=== PATIENT | female | born 1930 | race Caucasian/White ===

== ENCOUNTER 2017-12-01 13:25 | Inpatient (IN) | payer OTHER, MEDICARE ==
[~2017-12-01] VITALS: Ht 160 cm; Wt 74.9 kg
--- NOTE | 2017-12-01 13:45 | ED DYSPNEA/ASTHMA COMPLAINT ---
History of Present Illness General Chief Complaint: Dyspnea (COPD, CHF, Other) Stated Complaint: SOB Source: patient, family Exam Limitations: no limitations Vital Signs & Intake/Output Vital Signs & Intake/Output Vital Signs Date Time Temp Pulse Resp B/P B/P Pulse O2 O2 Flow FiO2 Mean Ox Delivery Rate 12/01 1537 97.3 97 18 132/61 93 / 1430 94 / 1425 93 12/01 1341 98.0 96 18 127/69 95 Room Air Allergies Coded Allergies: shrimp (Severe, ANAPHYLAXIS 12/01/17) Triage Note: PT TO ED, STATES THAT SHE WAS GETTING A PHYSICAL AND DR QUIROZ TOLD HER TO COME TO THE ED FOR FURTHER EVAL. STATES THAT SHE HAD A LITTLE MORE SOB IN HIS OFFICE. REPORTS SHE DOESNT FEEL COMPLETELY NORMAL, DENIES ANY CP, DENIES N/V. PT REPORTS DR QUIROZ CALLED TO ED FOR WHAT HE WANTS DONE, THIS RN (CHARGE) DID NOT RECEIVE ANY CALL. Triage Nurses Notes Reviewed? yes Onset: Gradual Duration: day(s): Timing: recent history Severity: moderate Activities at Onset: activity HPI: Pt is a 87 yo WF with a PMH of hypothyroid who presents to ED with a CC of cough and SOB since . Pt states she was feeling fine prior to her physical exam appointment last where she was found to have scatterred wheezes and "junky" lungs by her PCP. She was then prescribed Symbicort inhaler BID. She states since starting the symbicort she has had a cough productive of phlegm which she has been unable to spit up, she has also noted substernal chest heaviness/discomfort which does not radiate to her jaw or left arm. She reports 2 episodes of hot flashes, the second episode was this morning where is did "pass out". At one point the patient fell to the ground and blacked out for 1-2 seconds. She denies head strike. Pt denies fevers, N/V, hematemesis, hematuria, dysuria, melena/hematochezia, abdominal pain, lower extremity edema. Denies sick contacts. Denies recent tobacco use. (Renae FINNEGAN,Marlin Alexis) Past History Travel History Traveled to [place] past 21 day No Medical History Any Pertinent Medical History? see below for history Cardiovascular: hypertension Surgical History Surgical History: non-contributory Psychosocial History What is your primary language Armenian Tobacco Use: Never used Family History Hx Contributory? No (Renae FINNEGAN,Marlin Alexis) Review of Systems Review of Systems Constitutional: Reports: see HPI. EENTM: Denies: see HPI. Respiratory: Reports: see HPI. Cardiovascular: Reports: see HPI. GI: Denies: see HPI. Genitourinary: Reports: nocturia. Denies: see HPI. Musculoskeletal: Denies: see HPI. Skin: Reports: no symptoms. Neurological/Psychological: Reports: no symptoms. Hematologic/Endocrine: Reports: no symptoms. Immunologic/Allergic: Reports: no symptoms. All Other Systems: Reviewed and Negative (Renae FINNEGAN,Marlin Alexis) Physical Exam Physical Exam General Appearance: well developed/nourished, no apparent distress, alert, awake Head: atraumatic, normal appearance Eyes: Bilateral: normal appearance, EOMI. Ears, Nose, Throat: normal pharynx, normal ENT inspection, hearing grossly normal Neck: normal inspection, supple, full range of motion Respiratory: chest non-tender, diffuse corse wheezing and rhonchi through out all lung seals Cardiovascular: regular rate/rhythm Gastrointestinal: normal bowel sounds, soft, non-tender, no organomegaly Extremities: normal inspection, no edema Neurologic/Psych: awake, alert, oriented x 3 Skin: intact, normal color, warm/dry Core Measures ACS in differential dx? Yes CVA/TIA Diagnosis No Sepsis Present: No Sepsis Focused Exam Completed? No (Marlin Dean) Progress Differential Diagnosis: asthma, AMI, bronchitis, costochondritis, CHF, COPD, pericarditis, pulmonary embolism, pneumonia, pneumothorax Diagnostic Imaging: Viewed by Me: Radiology Read. Discussed w/RAD: Radiology Read. Radiology Impression: PATIENT: KAI LEA PRESENT AGE: 87 PATIENT ACCOUNT NO: [id number] : 31 LOCATION: [facility] ORDERING PHYSICIAN: Marlin FINNEGAN SERVICE DATE: 12/01/17 EXAM TYPE: RAD - XRY-CHEST XRAY, TWO VIEWS EXAMINATION: XR CHEST CLINICAL INFORMATION: Dyspnea COMPARISON: 11/30/2017 TECHNIQUE: 2 views of the chest were obtained. FINDINGS: The lungs are clear with no focal consolidation. No evidence of pneumothorax, pulmonary edema, or pleural effusions. The cardiomediastinal silhouette is unremarkable. No acute osseous findings. Degenerative changes are noted in the spine. IMPRESSION: No acute cardiopulmonary findings. DICTATED BY: Christian Mendez MD DATE/TIME DICTATED:12/01/171430 WATER RESOURCE MANAGER:MAXI DATE/TIME TRANSCRIBED:12/01/171430 CONFIDENTIAL, DO NOT COPY WITHOUT APPROPRIATE AUTHORIZATION. <Electronically signed in Other Vendor System> SIGNED BY: Christian Mendez MD 12/01/171436 Initial ED EKG: sinus rhythm @91bpm, nonspecific ST changes (Renae FINNEGAN,Marlin Alexis) Plan of Care: Orders Procedure Date/time Status Heart Healthy Diet 12/02 B Active Misc Message 12/01 175 Active ED Holding Orders 12/01 175 Active Admit to inpatient 12/01 175 Active Vital Signs 12/01 175 Active Code Status 12/01 175 Active Add-on Test (ER Only) 12/01 1511 Active Add-on Test (ER Only) 12/01 1510 Active RAPID VIRAL INFLUENZA A 12/01 1449 Complete AEROSOL (GEN) 12/01 1427 Complete THYROID STIMULATING HORMONE 12/01 1417 Complete FREE T4 12/01 1417 Complete D-DIMER 12/01 1417 Complete B-TYPE NATRIURETIC PEP (BNP) 12/01 1417 Complete TROPONIN LEVEL 12/01 1345 Complete COMPREHENSIVE METABOLIC PANEL 12/01 1345 Complete CBC WITHOUT DIFFERENTIAL 12/01 1345 Complete EKG 12/01 1326 Active Laboratory Tests 12/01/17 1417: Anion Gap 15, Estimated GFR 31 L, BUN/Creatinine Ratio 16.3, Glucose 111 H, Calcium 10.5 H, Total Bilirubin 0.6, AST 43 H, ALT 39, Alkaline Phosphatase 82 , Troponin I 0.03, Vvw-B-Engdrhmdajp Pept 736 H, Total Protein 7.3, Albumin 4.2 , Globulin 3.1, Albumin/Globulin Ratio 1.4, TSH 3.030, Free T4 1.63, D-Dimer High Sensitivty 211, CBC w Diff NO MAN DIFF REQ, RBC 4.13 L, MCV 93.1, MCH 32.3 H, MCHC 34.7, RDW 12.3, MPV 9.4, Gran % 65.8, Lymphocytes % 19.4 L, Monocytes % 14.0 H, Eosinophils % 0.6, Basophils % 0.2, Absolute Granulocytes 4.0, Absolute Lymphocytes 1.2, Absolute Monocytes 0.9 H, Absolute Eosinophils 0, Absolute Basophils 0 Microbiology 12/01 1449 NASOPHARYN: Influenza Virus A & B Rapid Smear - COMP PATIENT: KAI LEA PRESENT AGE: 87 PATIENT ACCOUNT NO: [id number] : 31 LOCATION: [facility] ORDERING PHYSICIAN: Marlin FINNEGAN SERVICE DATE: 12/01/17 EXAM TYPE: RAD - XRY-CHEST XRAY, TWO VIEWS EXAMINATION: XR CHEST CLINICAL INFORMATION: Dyspnea COMPARISON: 11/30/2017 TECHNIQUE: 2 views of the chest were obtained. FINDINGS: The lungs are clear with no focal consolidation. No evidence of pneumothorax, pulmonary edema, or pleural effusions. The cardiomediastinal silhouette is unremarkable. No acute osseous findings. Degenerative changes are noted in the spine. IMPRESSION: No acute cardiopulmonary findings. DICTATED BY: Christian Mendez MD DATE/TIME DICTATED:12/01/171430 WATER RESOURCE MANAGER:MAXI DATE/TIME TRANSCRIBED:12/01/171430 CONFIDENTIAL, DO NOT COPY WITHOUT APPROPRIATE AUTHORIZATION. <Electronically signed in Other Vendor System> SIGNED BY: Christian Mendez MD 12/01/171436 No evidence for pneumonia on chest x-ray. Patient's EKG is stable, no acute changes. Patient's d-dimer is negative, low suspicion for pulmonary embolism at this time. Patient has negative troponin enzyme. Patient's chest discomfort began yesterday. Patient does have cardiac risk factors including her age, hypertension, episodes of possible syncope today. Given patient's current dyspnea/wheezing with chest discomfort and syncopal episodes this patient requires hospital admission for further evaluation. Patient requires cardiology consult, pulmonology consult, IV steroids, repeat EKGs and troponins, telemetry monitoring. I discussed the patient with bounty trapper, Dr. Larson, who agrees with our plan. Dr. Gann present to see and evaluate the patient. Spoke with Dr. Figueroa regarding admission. (Renae FINNEGAN,Marlin Alexis) (Sanjuanita GLASGOW,Homero Walker) Departure Departure Disposition: STILL A PATIENT Condition: Stable Clinical Impression Primary Impression: Dyspnea Qualifiers: Dyspnea type: dyspnea on exertion Qualified Code: R06.09 - Other forms of dyspnea Secondary Impressions: Chest pain Syncopal episodes Qualifiers: Syncope type: unspecified Qualified Code: R55 - Syncope and collapse Wheezing Referrals: Jenny GLASGOW,Liam Ferreira (PCP/Family) Departure Forms: Customer Survey General Discharge Information Admission Note Spoke With: Shlomo Figueroa MD Documentation of Exam: Documentation of any treatments & extenuating circumstances including Concerns Regarding Discharge (functional status, medication knowledge or non-compliance, living conditions, etc.) that warrant an admission rather than observation: [ Patient with chest pain, dyspnea, diffuse wheezing on physical exam showing signs of possible asthma, syncopal episode today, this patient requires cardiology consult, repeat troponin and EKGs, pulmonology consult, IV steroids, premature discharge is medically unsafe] (Marlin Dean) PA/METAPHYSICS TEACHER Co-Sign Statement Statement: ED Attending supervision documentation- [X] I saw and evaluated the patient. I have also reviewed all the pertinent lab results and diagnostic results. I agree with the findings and the plan of care as documented in the PA's/METAPHYSICS TEACHER's documentation. Patient presents for syncopal episodes over the past 2 days. Patient was sent to the emergency department by her primary care physician. Physical examination reveals a nonfocal neurologic examination unremarkable heart and lung examination. [] I have reviewed the ED Record and agree with the PA's/METAPHYSICS TEACHER's documentation. [] Additions or exceptions (if any) to the PAs/METAPHYSICS TEACHER's note and plan are summarized below: [] (Sanjuanita GLASGOW,Homero Walker) Critical Care Note Critical Care Note Critical Care Time: non-applicable (Marlin Dean)
[2017-12-01 14:25] LABS: ABSOLUTE BASOPHIL COUNT 0 /CUMM (0.0-0.2); ABSOLUTE EOSINOPHIL COUNT 0 /CUMM (0.0-0.7); ABSOLUTE LYMPH COUNT 1.2 /CUMM (1.2-3.4); ABSOLUTE MONOCYTE COUNT 0.9 /CUMM (0.10-0.60); BASOPHIL % 0.2 % (0.0-2.0); EOSINOPHIL % 0.6 % (0-5); GRANULOCYTE % 65.8 % (42.2-75.2); HEMATOCRIT 38.4 % (37-47); MEAN CORPUSCULAR HGB 32.3 PG (27.0-31.0); MEAN CORPUSCULAR HGB CONC 34.7 G/DL (33.0-37.0); MEAN CORPUSCULAR VOLUME 93.1 FL (81.0-99.0); MEAN PLATELET VOLUME 9.4 FL (7.4-10.4); PLATELET COUNT 231 /CUMM (130-400); RBC DISTRIBUTION WIDTH 12.3 % (11.5-14.5); RED BLOOD CELL CT 4.13 /CUMM (4.20-5.40); WHITE BLOOD CELL COUNT 6.1 /CUMM (4.8-10.8)
--- NOTE | 2017-12-01 14:37 | RADIOLOGY REPORT ---
EXAMINATION: XR CHEST CLINICAL INFORMATION: Dyspnea COMPARISON: 11/30/2017 TECHNIQUE: 2 views of the chest were obtained. FINDINGS: The lungs are clear with no focal consolidation. No evidence of pneumothorax, pulmonary edema, or pleural effusions. The cardiomediastinal silhouette is unremarkable. No acute osseous findings. Degenerative changes are noted in the spine. IMPRESSION: No acute cardiopulmonary findings.
--- NOTE | 2017-12-01 21:19 | History & Physical ---
Donny Neff MD 12/01/172118: General Information and [facility] MD Statement: I have seen and personally examined KAI LEA and documented this H&P. The patient is a 87 year old F who presented with a patient stated chief complaint of syncope. Source of Information: patient, old records Exam Limitations: no limitations History of Present Illness: 87 year old female with past medical history of chronic renal insufficiency ( Stage IIIB), hypothyroidism and hypertension presents with complaints worsening cough, dyspnea, and syncopal episode this morning. The patient states that she has been experiencing exertional dyspnea for the past five years. The patient states that appoximately six years ago she underwent a negative exercise stress test with Dr. Monge. The patient has post nasal drip and chronic nonproductive dry hacking cough that is quite bothersome to her and that she attributes to seasonal allergies. She was recently started on Symbicort by Dr. Alvarado her PCP, but stopped it after only a few days use because she states her cough became dramatically worse with its use. Yesterday morning, the patient got out of bed and prior to eating breakfast, she felt faint, lightheaded, and diaphoretic. She felt like she was going to pass out and sat down to rest and her symptoms quickly resolved for the remainder of the day. This morning, she once again experienced the same symptoms but this time "knew she was going down " tried to brace her fall but was unable to. She fell on her left side and denied any head strike or injuries/pain related to the fall. She says its possible that she lost consciousness for a second but is uncertain. Review of systems is negative for headache, fevers, chills, sputum, sore throat, chest pain, palpitations, abdominal pain, nausea, vomiting, constipation, diarrhea, and weakness. She does state she has noticed increased urinary frequency, nocturia, and stress incontinence with her coughing but denies any dysuria. In the ED, she was treated with nebulized albuterol and ipatropium and steroids for cough and wheezing, had a chest x-ray, and was admitted to telemetry for syncope evaluation. Allergies/Medications Allergies: Coded Allergies: shrimp (Severe, ANAPHYLAXIS 12/01/17) Home Med list Hydrochlorothiazide 12.5 MG TABLET 1 TAB PO DAILY HTN (Reported) Levothyroxine Sodium (Synthroid) 88 MCG TABLET 1 TAB PO DAILY AC THYROID ( Reported) Losartan (Cozaar) 100 MG TABLET 1 TAB PO DAILY HTN (Reported) Compliance With Home Meds: GOOD Past History Travel History Traveled to [place] past 21 day No Medical History Cardiovascular: hypertension Endocrine: hypothyroidism Isolation History: Standard Surgical History Surgical History: non-contributory Past Family/Social History Psychosocial History Smoking Status: Former Smoker ETOH Use: denies use Illicit Drug Use: denies illicit drug use Functional Ability ADLs Independent: dressing, eating, toileting, bathing. Ambulation: independent Employment History Employment [employer] Review of Systems Review of Systems Constitutional: Reports: diaphoresis. Denies: chills, fever, malaise, weakness. EENTM: Reports: no symptoms. Cardiovascular: Reports: syncope. Denies: chest pain, edema, orthopena, palpitations, peripheral edema. Respiratory: Reports: cough, short of breath. Denies: hemoptysis, orthopnea, sputum production, stridor, wheezing. GI: Reports: no symptoms. Genitourinary: Reports: frequency, nocturia. Denies: dysuria. Musculoskeletal: Reports: no symptoms. Skin: Reports: no symptoms. Neurological/Psychological: Reports: no symptoms. Hematologic/Endocrine: Reports: no symptoms. Immunologic/Allergic: Reports: no symptoms. All Other Systems: Reviewed and Negative Exam & Diagnostic Data Last 24 Hrs of Vital Signs/I&O Vital Signs Date Time Temp Pulse Resp B/P B/P Pulse O2 O2 Flow FiO2 Mean Ox Delivery Rate 12/01 2200 93 Room Air 12/01 1833 98.3 97 18 142/63 98 Room Air 12/01 1537 97.3 97 18 132/61 93 / 1430 94 04/ 1425 93 04/ 1341 98.0 96 18 127/69 95 Room Air Intake & Output 12/01 1600 12/01 0800 12/01 0000 Intake Total 0 Output Total Balance 0 Intake, Oral 0 Physical Exam General Appearance Alert, Oriented X3, Cooperative, No Acute Distress Neck Supple, No JVD Cardiovascular Regular Rate, Normal S1, Normal S2, No Murmurs Lungs Clear to Auscultation, Normal Air Movement Abdomen Normal Bowel Sounds, Soft, No Tenderness, No Masses Neurological Normal Speech, Strength at 5/5 X4 Ext, Normal Tone, Sensation Intact, Cranial Nerves 3-12 NL Extremities No Clubbing, No Cyanosis, No Edema, Normal Pulses Diagnostic Data EKG Results sinus rhythm, no ischemic ST changes CXR Results The lungs are clear with no focal consolidation. No evidence of pneumothorax, pulmonary edema, or pleural effusions. The cardiomediastinal silhouette is unremarkable. No acute osseous findings. Degenerative changes are noted in the spine. Assessment/Plan Assessment: 87 year old female with past medical history of chronic renal insufficiency ( Stage IIIB), hypothyroidism and hypertension presents with complaints worsening cough, dyspnea, and syncopal episode this morning. Syncope: Monitor on telemetry for arrhythmia Check serial troponins and EKGs to evaluate for myocardial ischemia Check carotid dopplers to evaluate for hemodynamically significant stenosis Cardiology consultation with Dr. Monge Echocardiogram Cough: No wheezing noted on physical exam Received steroids and nebulizer treatment in the ED Chest x-ray negative Hold symbicort, start mucinex Urinary frequency: Check urinalysis and culture HTN: Continue losartan despite elevated creatinine, not acute kidney injury CKD Stage III Hold HCTZ for hypercalcemia 10.5, recheck BEP and calcium levels tomorrow Monitor renal function on ARB Hypothyroidism: TSH wnl Continue recently increased dose of 88mcg daily ac Heart healthy diet DVT ppx-lovenox 40mg daily DNR/DNI As Ranked By This Provider Problem List: 1. Syncopal episodes Qualifiers Syncope type: unspecified Qualified Code: R55 - Syncope and collapse Core Measures/Misc (05/17) Acute Coronary Syndrome ACS Diagnosis: No Congestive Heart Failure Congestive Heart Failure Diagnosis No Cerebrovascular Accident CVA/TIA Diagnosis: No VTE (View Protocol) VTE Risk Factors Age>40 No Mechanical VTE Prophylaxis d/t N/A MechProphylax Ordered No VTE Pharm Prophylaxis d/t NA PharmProphylax ordered Sepsis (View protocol) Sepsis Present: No Debby GLASGOW,Isctil 12/02/17 0632: Resident Review Statement Resident Statement: examined this patient, discussed with audit practice intern, agreed with audit practice intern Other Findings: Assessment: 87/F with PMH of HTN, CKD/IIIB, hypothyroidism presents because of pre-syncopal episode one day prior to admission and syncopal episode on the day of admission. She has post nasal drip and chronic nonproductive dry hacking cough that she attribute to seasonal allergies, she reported wheezing, symptoms worsen when PCP tried to treat by using Symbicort. The differential diagnosis for these symptoms would be obstructive lung disease such as undiagnosed asthma or COPD or possible chronic bronchitis or rhinitis. By reviewing her reconcile meds, 4 days ago she was given shingrix zoster vaccine and her levothyroxine dose was increase from 75 MCG to 88 MCG because of elevated TSH, However has normal thyroid function on admission. 10 days ago Losartan 100 Mg and HCTZ 12.5 mg were started. On admission was mildly tachycardic possible compensating to maintain normal blood pressure which makes orthostatic hypotension high in the deferential. Hypercalcemia was also noticed on admission and was also elevated 5 days ago. PTH and calcium were normal on 2014 and was not checked since then. Plan #Syncope, we'll * Monitor on tele to r/o ACS and arrhythmia * R/O carotid stenosis by doppler * Check orthostatic BP. * Watch BP while holding HCTZ and continuing Losartan * HCTZ should be avoided even on discharge given hypercalcemia after it was started. * Echocardiogram, given no previous documented one * Cardiology consultation. #cough, SOB, post nasal drip and wheezing, we'll * Hold steroid given no significant wheezing during PE * Peak flow if whezzing recur * Hold symbicort, start mucinex * TRC/Nebs * May benefit from flonase and claritin #Hypercalcemia, we'll * Recheck calcium level after holding HCTZ * Check PTH and Vit D level if calcium continue to be elevated after holding HCTZ. #Hypothyroidism, we'll * Continue recently increased dose -Heart healthy diet -HEP SC -DNR/I Shlomo Figueroa MD 12/02/17 1211: Attending MD Review Statement Attending Statement Attending MD Statement: examined this patient, discuss w/resident/PA/BOOSTER OPERATOR, agreed w/resident/PA/BOOSTER OPERATOR, reviewed EMR data (avail) Attending Assessment/Plan: 87F PMH HTN, CKD/IIIB, hypothyroidism presenting with several days of dry cough and mild dyspnea, with two near syncopal episodes in the days preceding admission. Went to her PCP 4 days prior with complaints of cough, was given Symbicort, which made her cough more so she stopped it, then had two episodes in consecutive days where she broke out into a cold sweat, felt lightheaded, and nearly fell to the ground. She did not lose consciousness in either episode, and they were not preceded by coughing fits, chest pain, SOB, or any other symptoms. EKG was NSR in ED, negative troponin, negative CXR. 1. Near syncope 2. Acute bronchitis 3. New onset atrial fibrillation Plan - Continue on telemetry - Prednisone 20mg x 3 day course - Tessalon Perles and Mucinex for cough - Continue home medications - DVT PPx
[2017-12-01 23:00] VITALS: BP 142/80
[2017-12-01] MEDS ORDERED: HYDROCHLOROTH12.5 M2 PO (23:11)
[2017-12-01] MEDS ORDERED: SYNTHROID88 MCG PO (23:11)
[2017-12-01] MEDS ORDERED: COZAAR100 M1 PO (23:12)
[2017-12-02 06:00] VITALS: BP 152/86
--- NOTE | 2017-12-02 07:19 | PN- Housestaff ---
Kuldeep GLASGOW,[facility] 12/02/17 0718: Subjective Follow-up For: Syncope ?Cough induced vasovagal syncope Afib Urinary frequency Tele-Events Since Last Visit: SVT/NSR HR 76-204 PVC Subjective: No acute events overnight. Coughing. No CP. States episode of sweats that woke her up. Recently increased synthroid from 75 to 88mcg. Review of Systems Constitutional: Reports: see HPI. Objective Last 24 Hrs of Vital Signs/I&O Vital Signs Date Time Temp Pulse Resp B/P B/P Pulse O2 O2 Flow FiO2 Mean Ox Delivery Rate 12/02 1440 86 130/70 12/02 1351 98.4 86 18 130/70 93 Room Air 12/02 1201 Room Air 12/02 0800 Room Air 12/02 0600 98.0 77 20 152/86 95 12/02 0150 111 142/82 12/01 2300 98.9 111 24 142/80 96 12/01 2200 93 Room Air Intake & Output 12/02 1600 12/02 0800 12/02 0000 Intake Total 480 110 100 Output Total 250 Balance 480 110 -150 Intake, IV 10 Intake, Oral 480 100 100 Output, Urine 250 Patient 161 lb Weight Weight Reported by Patient Measurement Method Physical Exam General Appearance: Alert, Oriented X3, Cooperative Cardiovascular: Regular Rate, Normal S1, Normal S2 Lungs: Clear to Auscultation, Normal Air Movement Abdomen: Normal Bowel Sounds, Soft, No Tenderness Vascular: 3+ radial pulses Current Medications: Current Medications Sig/Marie Start time Last Medication Dose Route Stop Time Status Admin Albuterol Sulfate 2 PUF Q4 12/02 1000 AC 12/02 INH 1734 Apixaban 2.5 MG BID 12/02 2200 AC PO Benzonatate 100 MG TID 12/02 1000 AC 12/02 PO 1733 Diltiazem HCl 30 MG Q8 12/02 1400 AC 12/02 PO 1440 Enoxaparin Sodium 30 MG DAILY 12/02 1000 CAN SC Guaifenesin 600 MG Q12 12/02 1000 AC 12/02 PO 0817 Heparin Sodium 5,000 UNIT Q8 12/02 1400 AC (Porcine) SC 12/02 2200 Hydrochlorothiazide 12.5 MG DAILY 12/02 1000 CAN PO Levothyroxine Sodium 0.088 MG DAILY AC 12/02 0700 AC 12/02 PO 0604 Losartan Potassium 100 MG AT BEDTIME 12/01 0030 AC 12/02 PO 0150 Prednisone 20 MG DAILY 12/02 1000 AC 12/02 PO 12/04 1001 1207 Last 24 Hrs of Lab/Steven Results Last 24 Hrs of Labs/Mics: Laboratory Tests 12/02/17 0630: Anion Gap 15, Estimated GFR 36 L, BUN/Creatinine Ratio 22.1, Glucose 131 H, Calcium 9.6, Troponin I 0.03 12/01/17 2250: Troponin I 0.03 Microbiology 12/02 0006 URINE ROUT: Urine Culture - COLB Assessment/Plan Assessment: 87 year old female with past medical history of chronic renal insufficiency ( Stage IIIB), hypothyroidism and hypertension presents with complaints worsening cough, dyspnea, and syncopal episode this morning. #Syncope: trop .03x3 Carotid doppler : b/l plaques but normal velocities -f/u echo -f/u cards recommendations #Cough Received steroids and nebulizer treatment in the ED Chest x-ray negative Possibly cough induced vasovagal syncope -tessalon pearsl -mucinex -prednisone 20 x3 days #afib run -apixaban 2.5 mg BID -cardizem 30 TID -f/u cardiology recomendations as stated above #Urinary frequency: -Check urinalysis and culture #HTN: -Continue losartan despite elevated creatinine, not acute kidney injury CKD Stage III -Hold HCTZ for hypercalcemia 10.5, recheck BEP and calcium levels tomorrow #Hypothyroidism: TSH wnl Continue recently increased dose of 88mcg daily ac -cont levothyroxine #CKD Cr 1.4 -baseline, cont to monitor Heart healthy diet DVT ppx-dc heparin SC, pt now on apixaban DNR/DNI Problem List: 1. Syncopal episodes 2. Cough 3. Afib Pain Ratin Pain Location: none Pain Goal: Pain 4 or less Pain Plan: pain pathway Tomorrow's Labs & Rationales: cbc bep Shlomo Figueroa MD 12/02/17 1209: Attending MD Review Statement Attending Statement Attending MD Statement: examined this patient, discuss w/resident/PA/[employer], agreed w/resident/PA/[employer], reviewed EMR data (avail) Attending Assessment/Plan: 87F PMH HTN, CKD/IIIB, hypothyroidism presenting with several days of dry cough and mild dyspnea, with two near syncopal episodes in the days preceding admission. Went to her PCP 4 days prior with complaints of cough, was given Symbicort, which made her cough more so she stopped it, then had two episodes in consecutive days where she broke out into a cold sweat, felt lightheaded, and nearly fell to the ground. She did not lose consciousness in either episode, and they were not preceded by coughing fits, chest pain, SOB, or any other symptoms. EKG was NSR in ED, negative troponin, negative CXR. Patient feels well today. Her cough persists. Overnight she had an episode of cold sweats with lightheadedness that woke her up from sleep. Telemetry shows runs of atrial fibrillation overnight. She is currently in NSR. 1. Near syncope 2. Acute bronchitis 3. New onset atrial fibrillation Plan - Continue on telemetry - Start Cardizem PO - Start Eliquis - Prednisone 20mg x 3 day course - Tessalon Perles and Mucinex for cough - Continue home medications - Check orthostatics tomorrow morning - DVT PPx
--- NOTE | 2017-12-02 10:31 | Cons- Cardiology ---
General Information and HPI Consulting Request Date of Consult: 12/02/17 Requested By: Shlomo Figueroa MD Reason for Consult: Syncope Source of Information: patient, old records Exam Limitations: no limitations History of Present Illness: The patient is an 87-year-old woman with a past medical history of hypothyroidism, hypertension and chronic renal insufficiency. She presents to our hospital today with symptoms of occasional flushing as well as a near syncopal/syncopal episode. The patient states she had episodes of lightheadedness as well as a flushing sensation, lasting for several seconds over the past several years. On the day prior to arrival, she had a more significant and intense episode; however, this was in the context of URI symptoms and increasing, following an inhaler use. On the morning of arrival, she states having again a sudden sensation of flushing, with concurrent lightheadedness and diaphoresis. This was following arising out of bed. She felt immediately week and states being aware of a near syncopal episode, wherein she is unsure conscious us prior to falling to the floor; however, recalls hitting the ground. No significant trauma was sustained. There was quick resolution of the symptoms. She otherwise denied concurrent symptoms of chest pain nor palpitations at that time. On arrival to the emergency room, an EKG demonstrated no acute changes. She was treated with an nebulizer with relief of respiratory symptoms, and reduction in cough and wheezing. Following admission to telemetry, she was noted to have occasional PACs, PVCs and a short paroxysm of atrial fibrillation with a ventricular response rate of approximately 160 bpm approximately 5 seconds. Stress testing and an echocardiogram performed in 2014 due to presentation of dyspnea on exertion. These demonstrated overall normal results. Allergies/Medications Allergies: Coded Allergies: shrimp (Severe, ANAPHYLAXIS 12/01/17) Home Med List: Hydrochlorothiazide 12.5 MG TABLET 1 TAB PO DAILY HTN (Reported) Levothyroxine Sodium (Synthroid) 88 MCG TABLET 1 TAB PO DAILY AC THYROID ( Reported) Losartan (Cozaar) 100 MG TABLET 1 TAB PO DAILY HTN (Reported) Current Medications: Current Medications Sig/Marie Start time Last Medication Dose Route Stop Time Status Admin Albuterol Sulfate 2 PUF Q4 12/02 1000 AC INH Albuterol Sulfate 3 ML ONCE ONE 12/01 1430 DC 12/01 INH 12/01 1431 1425 Benzonatate 100 MG TID 12/02 1000 AC PO Enoxaparin Sodium 30 MG DAILY 12/02 1000 CAN SC Guaifenesin 600 MG Q12 12/02 1000 AC 12/02 PO 0817 Heparin Sodium 5,000 UNIT Q8 12/02 1400 AC (Porcine) SC Hydrochlorothiazide 12.5 MG DAILY 12/02 1000 CAN PO Ipratropium Moody 2.5 ML ONCE ONE 12/01 1430 DC 12/01 INH 12/01 1431 1425 Levothyroxine Sodium 0.088 MG DAILY AC 12/02 0700 AC 12/02 PO 0604 Losartan Potassium 100 MG AT BEDTIME 12/01 0030 AC 12/02 PO 0150 Methylprednisolone 0 .STK-MED ONE 12/01 1649 DC .ROUTE Methylprednisolone 125 MG ONCE ONE 12/01 1645 DC 12/01 IV 12/01 1646 1654 Prednisone 20 MG DAILY 12/02 1000 AC PO Review of Systems Review of Systems: The review of systems is negative for chest pains; however, is positive for palpitations and lightheadedness episodes as above. The remainder of the 14 point review of systems is noncontributory with the exception of above. Past History Travel History Traveled to [place] past 21 day No Medical History Blood Transfusion Hx: Yes Neurological: dizziness EENT: NONE Cardiovascular: hypertension Respiratory: NONE Gastrointestinal: GERD Hepatic: NONE Renal: RECENTLY ELEVATED KIDNEY FUNCTIONS Musculoskeletal: osteoarthritis Psychiatric: NONE Endocrine: hypothyroidism Blood Disorders: NONE Cancer(s): NONE RESEARCH PROGRAM MANAGER/Reproductive: NONE Surgical History Surgical History: non-contributory Psychosocial History Where Do You Live? Home Smoking Status: Former Smoker ETOH Use: denies use Illicit Drug Use: denies illicit drug use Functional Ability ADLs Independent: dressing, eating, toileting, bathing. Ambulation: independent Employment History Employment: [employer] Exam & Diagnostic Data Vital Signs and I&O Vital Signs Date Time Temp Pulse Resp B/P B/P Pulse O2 O2 Flow FiO2 Mean Ox Delivery Rate 12/02 08 Room Air 12/02 06 98.0 77 20 152/86 95 12/02 0150 111 142/82 12/01 2300 98.9 111 24 142/80 96 12/01 2200 93 Room Air 12/01 1833 98.3 97 18 142/63 98 Room Air 12/01 1537 97.3 97 18 132/61 93 12/01 1430 94 12/01 1425 93 12/01 1341 98.0 96 18 127/69 95 Room Air Intake & Output 12/02 0800 12/02 0000 12/01 1600 12/01 0800 12/01 0000 Intake Total 110 100 0 Output Total 250 Balance 110 -150 0 Intake, IV 10 Intake, Oral 100 100 0 Output, Urine 250 Patient 161 lb Weight Weight Reported by Patient Measurement Method Physical Exam: General: Nontoxic, no apparent distress. HEENT: Sclera and conjunctiva within normal limits, without xanthelasmas. Neck: Carotids 2+ without bruits. Respiratory: Clear to auscultation, air movement is good, without accessory respiratory muscle use. Heart: Regular rate and rhythm, without murmurs, without JVD. Abdomen: Soft, nontender, no masses, normoactive bowel sounds. Extremities: Without clubbing, cyanosis, without edema. Neuro: Nonfocal exam, strength, 5 out of 5 Skin: Within normal limits without lesions. Psych: Mood and affect: Normal Labs/Steven Results: Laboratory Tests 12/02 12/01 12/01 0630 2250 1417 Chemistry Sodium (137 - 145 mmol/L) 140 137 Potassium (3.5 - 5.1 mmol/L) 4.2 4.2 Chloride (98 - 107 mmol/L) 104 101 Carbon Dioxide (22 - 30 mmol/L) 20 L 21 L Anion Gap (5 - 16) 15 15 BUN (7 - 17 mg/dL) 31 H 26 H Creatinine (0.5 - 1.0 mg/dL) 1.4 H 1.6 H Estimated GFR (>60 ml/min) 36 L 31 L BUN/Creatinine Ratio (7 - 25 %) 22.1 16.3 Glucose (65 - 99 mg/dL) Pending 111 H Calcium (8.4 - 10.2 mg/dL) Pending 10.5 H Total Bilirubin (0.2 - 1.3 mg/dL) 0.6 AST (14 - 36 U/L) 43 H ALT (9 - 52 U/L) 39 Alkaline Phosphatase (<127 U/L) 82 Troponin I (< 0.11 ng/ml) 0.03 0.03 0.03 Rdb-[id number] Pept (<125 pg/mL) 736 H Total Protein (6.3 - 8.2 g/dL) 7.3 Albumin (3.5 - 5.0 g/dL) 4.2 Globulin (1.9 - 4.2 gm/dL) 3.1 Albumin/Globulin Ratio (1.1 - 2.2 %) 1.4 TSH (0.270 - 4.200 uIU/mL) 3.030 Free T4 (0.85 - 1.93 ng/dL) 1.63 Coagulation D-Dimer High Sensitivty (0 - 243 ng/ml) 211 Hematology CBC w Diff NO MAN DIFF REQ WBC (4.8 - 10.8 /CUMM) 6.1 RBC (4.20 - 5.40 /CUMM) 4.13 L Hgb (12.0 - 16.0 G/DL) 13.3 Hct (37 - 47 %) 38.4 MCV (81.0 - 99.0 FL) 93.1 MCH (27.0 - 31.0 PG) 32.3 H MCHC (33.0 - 37.0 G/DL) 34.7 RDW (11.5 - 14.5 %) 12.3 Plt Count (130 - 400 /CUMM) 231 MPV (7.4 - 10.4 FL) 9.4 Gran % (42.2 - 75.2 %) 65.8 Lymphocytes % (20.5 - 51.1 %) 19.4 L Monocytes % (1.7 - 9.3 %) 14.0 H Eosinophils % (0 - 5 %) 0.6 Basophils % (0.0 - 2.0 %) 0.2 Absolute Granulocytes (1.4 - 6.5 /CUMM) 4.0 Absolute Lymphocytes (1.2 - 3.4 /CUMM) 1.2 Absolute Monocytes (0.10 - 0.60 /CUMM) 0.9 H Absolute Eosinophils (0.0 - 0.7 /CUMM) 0 Absolute Basophils (0.0 - 0.2 /CUMM) 0 Assessment/Plan Assessment/Plan 87-year-old woman with a past medical history of hypothyroidism, hypertension and chronic renal insufficiency. She presents to our hospital today with symptoms of occasional flushing as well as a near syncopal/syncopal episode. Near syncope/paroxysmal atrial fibrillation: The patient had a near syncopal episode which was of sudden onset. We discussed possible etiologies which would include orthostatic blood pressure changes as well as other such as paroxysmal arrhythmias. As we have seen a short paroxysm of atrial fibrillation on telemetry monitoring, as the suspicion for this being the etiology. Have discussed atrial fibrillation with the patient as well as the need for initiation of anticoagulation regimen and a rate control agent. Given her renal dysfunction and age, an agent such as Eliquis set 2.5 mg by mouth twice a day would be appropriate. As her blood pressure is mildly elevated and she has evidence for reactive airway disease, an agent such as diltiazem may be considered for rate control during atrial fibrillation paroxysms. This may be initiated, and further outpatient monitoring ilana event monitor would be performed as an outpatient. An echocardiogram will be obtained. Chronic kidney disease: The patient has chronic kidney disease and no evidence for acute volume overload. We will try to maintain a euvolemic state. Thank you for allowing us to participate in the care of your patient. Please do not hesitate to contact us further with any questions. Sincerely, Bright Monge MD [facility] Consult Acknowledgment - Thank you for your consult request.
--- NOTE | 2017-12-02 12:11 | Admission Certification ---
Admission Certification Certification Statement - As attending physician, I certify that at the time of - admission, based on clinical presentation, severity of - symptoms, need for further diagnostic testing and - therapeutic interventions, and risk of adverse outcomes - without in-hospital treatment, in my clinical assessment, - this patient requires an acute hospital stay for a minimum - of two nights or longer. I have also considered psychsocial - factors such as support system, advanced age, financial - issues, cognitive issues, and failed out-patient treatments, - past re-admission history, safety of patient, and lack of - compliance as applicable. Specific rationale supporting this admission is: Near syncope x2 with cough, fall risk
--- NOTE | 2017-12-02 12:19 | ULTRASOUND REPORT ---
EXAMINATION: DUPLEX BILATERAL CAROTID ULTRASOUND CLINICAL INFORMATION: Syncope COMPARISON: None. TECHNIQUE: Duplex bilateral carotid US was performed using real-time ultrasound and Doppler techniques (integrating B-mode 2D vascular images, Doppler spectral analysis and color flow Doppler imaging). These techniques were utilized to interrogate the extracranial carotid and vertebral arteries bilaterally. The degree of stenosis is based off criteria similar to NASCET. FINDINGS: 1. On the right: Plaque is present at the carotid bifurcation but velocity measurements are normal and do not suggest a stenosis of greater than 50% diameter reduction in the right ICA. The right ECA demonstrates a mild stenosis with peak systolic velocity of under 200 cm/s. The vertebral artery is patent demonstrating antegrade flow. 2. On the left: Plaque is present at the carotid bifurcation but velocity measurements are normal and do not suggest a stenosis of greater than 50% diameter reduction in the left ICA. The left ECA demonstrates a mild stenosis with peak systolic velocity of under 200 cm/s. The vertebral artery is patent demonstrating antegrade flow. IMPRESSION: Plaque is present in the internal carotid arteries but velocity measurements are normal and there is no evidence to suggest a hemodynamically significant stenosis of greater than 50% diameter reduction.
[2017-12-02 13:51] VITALS: BP 130/70
--- NOTE | 2017-12-02 20:51 | ECHOCARDIOGRAM REPORT ---
KAI LEA Age: 87 : 1930 Gender: F Exam Date: 12/02/2017 19:09 Exam Location: 1 [address] Ht (in): 62 Wt (lb): 161 BSA: 1.81 BP: 152 / 86 Ordering Physician: Donny Neff MD Referring Physician: Bright Monge M.D. Technologist: Sandra Cuba [facility] Room Number: 185-02 Indications: AFIB/FLUTTER Rhythm: Sinus Technical Quality: poor FINDINGS Left Ventricle Normal size left ventricle. Left ventricular wall thickness mildly increased. Normal left ventricular ejection fraction estimated at 60-65%. Right Ventricle Normal right ventricular size and function. Right Atrium Normal right atrial size. Left Atrium Mild left atrial dilatation. Mitral Valve Mild mitral annular calcification. Trace to mild mitral regurgitation. Aortic Valve Aortic valve not well visualized. Mild aortic stenosis. Tricuspid Valve Tricuspid valve not well visualized, grossly normal. Mild tricuspid regurgitation. Right ventricular systolic pressure estimated to be within the normal range at 26 mmHg. Pulmonic Valve Pulmonic valve not well visualized. Pericardium No pericardial effusion. Great Vessels Aortic root and proximal ascending aorta not well visualized. CONCLUSIONS Poor Echo window. Normal left ventricular sstolic function with mild concentric hypertrophy. Mild Left atrial enlargement. Mild Aortic stenosis. Livan Bhardwaj M.D. (Electronically Signed) Final Date: 02 December 2017 20:51 MEASUREMENTS (Male / Female) Normal Values 2D ECHO LV Diastolic Diameter PLAX 4.3 cm 4.2 - 5.9 / 3.9 - 5.3 cm LV Systolic Diameter PLAX 2.3 cm 2.1 - 4.0 cm LV Fractional Shortening PLAX 46.5 % 25 - 46 % LV Ejection Fraction 2D Teich 78.2 % IVS Diastolic Thickness 1.2 cm LVPW Diastolic Thickness 1.2 cm LV Relative Wall Thickness 0.6 RV Internal Dim ED PLAX 2.6 cm 1.9 - 3.8 cm LVOT Diameter 1.9 cm Aortic Root Diameter 2.8 cm LA Systolic Diameter LX 3.8 cm 3.0 - 4.0 / 2.7 - 3.8 cm LA Volume 22.0 cm 18 - 58 / 22 - 52 cm Ascending Aorta Diameter 2.7 cm DOPPLER AV Peak Velocity 254.0 cm/s AV Peak Gradient 25.8 mmHg AV Mean Velocity 170.0 cm/s AV Mean Gradient 13.0 mmHg AV Velocity Time Integral 47.6 cm LVOT Peak Velocity 113.0 cm/s LVOT Peak Gradient 5.1 mmHg LVOT Mean Velocity 75.7 cm/s LVOT Mean Gradient 3.0 mmHg LVOT Velocity Time Integral 21.9 cm LVOT Stroke Volume 62.1 cm AV Area Cont Eq vti 1.3 cm AV Area Cont Eq pk 1.3 cm MV Peak Velocity 132.0 cm/s MV Peak Gradient 7.0 mmHg MV Mean Velocity 88.7 cm/s MV Mean Gradient 4.0 mmHg Mitral E Point Velocity 124.0 cm/s Mitral A Point Velocity 132.0 cm/s Mitral E to A Ratio 0.9 MV PHT Velocity 132.0 cm/s MV Deceleration [place] 751.0 cm/s MV Pressure Half Time 52.7 ms MV Area PHT 4.2 cm MV Deceleration Time 172.0 ms TR Peak Velocity 229.0 cm/s TR Peak Gradient 21.0 mmHg Right Atrial Pressure 5.0 mmHg Pulmonary Artery Systolic Pressu 26.0 mmHg Right Ventricular Systolic Press 26.0 mmHg PV Peak Velocity 121.0 cm/s PV Peak Gradient 5.9 mmHg PV Mean Velocity 76.8 cm/s PV Mean Gradient 3.0 mmHg PV Velocity Time Integral 19.8 cm LV E' Lateral Velocity 10.4 cm/s Mitral E to LV E' Lateral Ratio 11.9 LV E' Septal Velocity 6.4 cm/s Mitral E to LV E' Septal Ratio 19.3
[2017-12-02 22:23] VITALS: BP 137/84
[2017-12-03 06:46] VITALS: BP 130/78
--- NOTE | 2017-12-03 08:57 | PN- Housestaff ---
Kuldeep GLASGOW,[facility] 12/03/17 0857: Subjective Follow-up For: Syncope ?Cough induced vasovagal syncope Afib Urinary frequency Tele-Events Since Last Visit: NSR 66/[address] depressions Subjective: No acute events overnight. Patient states that she slept better and issues. States urinary frequency improved, no longer having any increased frequency. No pain. Cough improved with Robitussin. Did not want Robitussin with codeine, asking for Robitussin without codeine. Patient states she had another syncope-like episode while in the bathroom this morning. States she was coughing before this episode. Telemetry events reviewed for around 8:15 AM which revealed PVCs and artifact. Review of Systems Constitutional: Reports: see HPI. Objective Last 24 Hrs of Vital Signs/I&O Vital Signs Date Time Temp Pulse Resp B/P B/P Pulse O2 O2 Flow FiO2 Mean Ox Delivery Rate 12/03 1344 74 130/74 04/ 0649 74 130/74 / 0646 98.2 74 21 130/78 95 /05 0000 Room Air 12/02 2235 84 138/84 12/02 2230 84 138/84 12/02 2223 98.6 84 19 137/84 93 04/04 1440 86 130/70 Intake & Output 12/03 1600 / 0800 04/ 0000 Intake Total 120 360 Output Total Balance 120 360 Intake, Oral 120 360 Patient 166 lb Weight Physical Exam General Appearance: Alert, Oriented X3, Cooperative Cardiovascular: Normal S1, Normal S2, mild tachycardia Lungs: Clear to Auscultation, Normal Air Movement Abdomen: Normal Bowel Sounds, Soft, No Tenderness Extremities: no lower extremity edema Vascular: 2+ radial pulses Current Medications: Current Medications Sig/Marie Start time Last Medication Dose Route Stop Time Status Admin Albuterol Sulfate 2 PUF Q4 / 1000 AC / INH 1346 Apixaban 2.5 MG BID 12/02 2200 AC 04/05 PO 0820 Benzonatate 100 MG TID 12/02 1000 AC 04/05 PO 0820 Diltiazem HCl 30 MG Q8 12/02 1400 AC 04/05 PO 1344 Guaifenesin 600 MG Q12 / 1000 AC 04/05 PO 0820 Guaifenesin/Codeine 10 ML AT BEDTIME PRN 12/03 1046 DC Phosphate PO Guaifenesin/Codeine 10 ML Q4P PRN 12/02 2300 DC 12/02 Phosphate PO 2310 Guaifenesin/ 10 ML AT BEDTIME NEED.. 12/03 1100 AC 12/03 Dextromethorphan PO 1101 Guaifenesin/ 10 ML .STK-MED ONE 12/02 2258 DC Dextromethorphan PO 12/02 2259 Heparin Sodium 5,000 UNIT Q8 12/02 1400 DC (Porcine) SC 12/02 2200 Levothyroxine Sodium 0.088 MG DAILY AC 12/02 0700 AC 12/03 PO 0649 Losartan Potassium 100 MG AT BEDTIME 12/01 0030 AC 12/02 PO 2230 Patient Medication 1 ED ONE ONE 12/03 0930 DC 12/03 Teaching ED 12/03 0931 1101 Prednisone 20 MG DAILY 12/02 1000 AC 12/03 PO 12/04 1001 0820 Sodium Chloride 1,000 ML Q13H 12/03 1100 AC 12/03 IV 12/03 2359 1059 Last 24 Hrs of Lab/Steven Results Last 24 Hrs of Labs/Mics: Laboratory Tests 12/03/17 0643: Anion Gap 12, Estimated GFR 33 L, BUN/Creatinine Ratio 24.0, Calcium 9.1, Magnesium 2.1 Assessment/Plan Assessment: 87 year old female with past medical history of chronic renal insufficiency ( Stage IIIB), hypothyroidism and hypertension presents with complaints worsening cough, dyspnea, and syncopal episode this morning. #Syncope: trop .03x3 Carotid doppler : b/l plaques but normal velocities Echo: 60-65% -f/u cards recommendations -f/u orthostatics -place compression stockings #Cough Received steroids and nebulizer treatment in the ED Chest x-ray negative Possibly cough induced vasovagal syncope -tessalon pearsl -mucinex -Robitussin without codeine (per pt requests) -prednisone 20 x3 days #afib run -apixaban 2.5 mg BID -cardizem 30 TID -f/u cardiology recomendations as stated above #Urinary frequency: -Check urinalysis and culture #HTN: -Continue losartan despite elevated creatinine, not acute kidney injury CKD Stage III -Hold HCTZ for hypercalcemia 10.5, recheck BEP and calcium levels tomorrow #Hypothyroidism: TSH wnl -cont levothyroxine #CKD Cr 1.5 -baseline, cont to monitor Heart healthy diet DVT ppx-dc heparin SC, pt now on apixaban DNR/DNI Problem List: 1. Afib 2. Cough Pain Ratin Pain Location: NONE Pain Goal: Pain 4 or less Pain Plan: pain pathway Tomorrow's Labs & Rationales: none Carolina GLASGOWShlomo 12/03/17 1143: Attending MD Review Statement Attending Statement Attending MD Statement: examined this patient, discuss w/resident/PA/GRAIN BROKER AND MARKET OPERATOR, agreed w/resident/PA/GRAIN BROKER AND MARKET OPERATOR, reviewed EMR data (avail) Attending Assessment/Plan: 87F PMH HTN, CKD/IIIB, hypothyroidism presenting with several days of dry cough and mild dyspnea, with two near syncopal episodes in the days preceding admission. Went to her PCP 4 days prior with complaints of cough, was given Symbicort, which made her cough more so she stopped it, then had two episodes in consecutive days where she broke out into a cold sweat, felt lightheaded, and nearly fell to the ground. She did not lose consciousness in either episode, and they were not preceded by coughing fits, chest pain, SOB, or any other symptoms. EKG was NSR in ED, negative troponin, negative CXR. Patient feels well today. Her cough has improved. This she had an episode of cold sweats with lightheadedness. No telemetry events. 1. Near syncope 2. Acute bronchitis 3. New onset atrial fibrillation Plan - Continue on telemetry - Continue PO Cardizem and Eliquis, tomorrow switch Cardizem to 90mg extended release daily - Prednisone 20mg x 3 day course - Robitussin with codeine only before bed, then Tessalon Perles and Mucinex for cough - Continue home medications - Check orthostatics tomorrow morning - DVT PPx - Anticipated discharge tomorrow. Please send CMR to pharmacy for review. No labs tomorrow.
--- NOTE | 2017-12-03 10:26 | PN- Cardiology ---
Subjective Subjective: Telemetry reviewed. Sinus rhythm throughout. No significant bradycardia. On talking to the nurses apparently the patient was washing up at the sink standing which he felt she was lightheaded and therefore went to a bed and sat down and the feeling passed. However she reportedly took some Robitussin that might have contained codeine this morning. She also took Robitussin and codeine last night and had the best sleep. No recurrent atrial fibrillation. Objective Vital Signs and I&Os Vital Signs Date Time Temp Pulse Resp B/P B/P Pulse O2 O2 Flow FiO2 Mean Ox Delivery Rate 12/03 0649 74 130/74 12/03 0646 98.2 74 21 130/78 95 / 0000 Room Air 12/02 2235 84 138/84 12/02 2230 84 138/84 12/02 2223 98.6 84 19 137/84 93 12/02 1440 86 130/70 12/02 1351 98.4 86 18 130/70 93 Room Air 12/02 1201 Room Air Intake & Output 12/03 1600 12/03 0800 12/03 0000 12/02 1600 12/02 0800 12/02 0000 Intake Total 120 360 480 110 100 Output Total 250 Balance 120 360 480 110 -150 Intake, IV 10 Intake, Oral 120 360 480 100 100 Output, Urine 250 Patient 166 lb 161 lb Weight Weight Reported by Patient Measurement Method Physical Exam: On general exam the patient appeared comfortable. She was sitting at the edge of the bed talking to me. Head normocephalic atraumatic Eyes sclera anicteric conjunctiva showed no pallor extraocular muscles are normal Neck no jugular venous distention no thyroid masses no palpable nodes Chest lungs were clear bilaterally, except for scattered wheezes Heart regular rhythm with a 1/6 to 2/6 systolic murmur Abdomen soft no organomegaly bowel sounds normal Extremities no clubbing cyanosis or edema Neurological no gross motor or sensory deficits Current Medications: Current Medications Sig/Marie Start time Last Medication Dose Route Stop Time Status Admin Albuterol Sulfate 2 PUF Q4 12/02 1000 AC 12/03 INH 0826 Apixaban 2.5 MG BID 12/02 2200 AC 12/03 PO 0820 Benzonatate 100 MG TID 12/02 1000 AC 12/03 PO 0820 Diltiazem HCl 30 MG Q8 12/02 1400 AC 12/03 PO 0649 Guaifenesin 600 MG Q12 12/02 1000 AC 12/03 PO 0820 Guaifenesin/Codeine 10 ML Q4P PRN 12/02 2300 AC 12/02 Phosphate PO 2310 Guaifenesin/ 10 ML .STK-MED ONE 12/02 2258 DC Dextromethorphan PO 12/02 225 Heparin Sodium 5,000 UNIT Q8 12/02 1400 DC (Porcine) SC 12/02 2200 Levothyroxine Sodium 0.088 MG DAILY AC 12/02 0700 AC 12/03 PO 0649 Losartan Potassium 100 MG AT BEDTIME 12/01 0030 AC 12/02 PO 2230 Patient Medication 1 ED ONE ONE 12/03 0930 DC Teaching ED 12/03 0931 Prednisone 20 MG DAILY 12/02 1000 AC 12/03 PO 12/04 1001 0820 Results Last 48 Hrs of Labs/Mics: Laboratory Tests 12/03/17 0643: Anion Gap 12, Estimated GFR 33 L, BUN/Creatinine Ratio 24.0, Calcium 9.1, Magnesium 2.1 12/02/17 0630: Anion Gap 15, Estimated GFR 36 L, BUN/Creatinine Ratio 22.1, Glucose 131 H, Calcium 9.6, Troponin I 0.03 12/01/17 2250: Troponin I 0.03 12/01/17 1417: Anion Gap 15, Estimated GFR 31 L, BUN/Creatinine Ratio 16.3, Glucose 111 H, Calcium 10.5 H, Total Bilirubin 0.6, AST 43 H, ALT 39, Alkaline Phosphatase 82 , Troponin I 0.03, Hmp-X-Flhdcmsedti Pept 736 H, Total Protein 7.3, Albumin 4.2 , Globulin 3.1, Albumin/Globulin Ratio 1.4, TSH 3.030, Free T4 1.63, D-Dimer High Sensitivty 211, CBC w Diff NO MAN DIFF REQ, RBC 4.13 L, MCV 93.1, MCH 32.3 H, MCHC 34.7, RDW 12.3, MPV 9.4, Gran % 65.8, Lymphocytes % 19.4 L, Monocytes % 14.0 H, Eosinophils % 0.6, Basophils % 0.2, Absolute Granulocytes 4.0, Absolute Lymphocytes 1.2, Absolute Monocytes 0.9 H, Absolute Eosinophils 0, Absolute Basophils 0 Microbiology 12/01 1449 NASOPHARYN: Influenza Virus A & B Rapid Smear - COMP Assessment/Plan Assessment/Plan Summary this 87-year-old female was admitted with the following problems 1. Syncope. Recent cough and differential diagnoses have included vasovagal syncope, orthostatic hypotension or significant bradycardia. During her episode this morning there was no cardiac arrhythmia bradycardia or tachycardia documented. 2. Paroxysmal atrial fibrillation. Patient on diltiazem and anticoagulation with Eliquis 3. History of hypothyroidism 4. Hypertension 5. Chronic renal insufficiency I would suggest getting orthostatic blood pressure readings, using compression stockings, hydration and continue to observe on telemetry for another 24 hours. She will probably benefit from prolonged monitoring to rule out significant bradycardia. This can be done as an outpatient. Continue telemetry? Yes
[2017-12-03] MEDS ORDERED: ELIQUIS2.5 M1 PO (14:13)
[2017-12-03] MEDS ORDERED: GUAIFENESIN ER600 MG PO (14:13)
[2017-12-03] MEDS ORDERED: GUAIFENESIN DM S5 ML PO (14:13)
[2017-12-03] MEDS ORDERED: BENZONATATE100 M1 PO (14:13)
[2017-12-03] MEDS ORDERED: DILTIAZEM 24HR300 M2 PO (14:13)
--- NOTE | 2017-12-03 14:15 | Patient Discharge Instructions ---
Discharge Instructions General Discharge Information Special Instructions: Please follow-up with your primary care physician in one week. Please follow-up with your land surveyor assistant in one week. Please take your medications as prescribed. Acute Coronary Syndrome Inclusion Criteria At DC or during hospital stay patient has or had the following: ACS DIAGNOSIS No Discharge Core Measures Meds if any: Prescribed or Continued at Discharge Meds if any: NOT Prescribed or Continued at Discharge Congestive Heart Failure Inclusion Criteria At DC or during hospital stay patient has or had the following: CHF DIAGNOSIS No Discharge Core Measures Meds if any: Prescribed or Continued at Discharge Meds if any: NOT Prescribed or Continued at Discharge Cerebrovascular accident Inclusion Criteria At DC or during hospital stay patient has or had the following: CVA/TIA Diagnosis No Discharge Core Measures Meds if any: Prescribed or Continued at Discharge Meds if any: NOT Prescribed or Continued at Discharge Venous thromboembolism Inclusion Criteria VTE Diagnosis No VTE Type NONE VTE Confirmed by (Test) NONE Discharge Core Measures - Per Current guidelines, there needs to be overlap - treatment for the first 5 days of Warfarin therapy. - If discharged on Warfarin prior to 5 days of - overlap therapy, the patient will need to be - assessed for post discharge needs including - *Post discharge parental anticoagulation - *Warfarin and/or parental anticoagulation education - *Follow up date to check INR post discharge At least 5 days overlap therapy as Inpatient No Meds if any: Prescribed or Continued at Discharge Note: Overlap Therapy is Warfarin and Anticoagulant Meds if any: NOT Prescribed or Continued at Discharge
[2017-12-03 14:31] VITALS: BP 112/62
[2017-12-04 06:50] VITALS: BP 146/84
--- NOTE | 2017-12-04 07:53 | PN- Housestaff ---
Kuldeep GLASGOW,[facility] 12/04/17 0753: Subjective Follow-up For: Syncope/?Cough induced vasovagal syncope Bronchitis Afib Urinary frequency Tele-Events Since Last Visit: NSR 8194 PVC [place] Subjective: No acute events overnight. Patient became short of breath today. Takes HCTZ at home but was initially held due to her syncope. [place] better after a dosage of IV Lasix. Review of Systems Constitutional: Reports: see HPI. Objective Last 24 Hrs of Vital Signs/I&O Vital Signs Date Time Temp Pulse Resp B/P B/P Pulse O2 O2 Flow FiO2 Mean Ox Delivery Rate 12/04 1600 94 Room Air Room Air 12/04 1559 81 110/60 12/04 1436 98.6 98 20 130/64 96 Room Air 12/04 1030 93 Room Air 12/04 0650 98.0 89 20 146/84 93 Room Air Intake & Output 12/04 1600 / 0800 04/ 0000 Intake Total 300 455 465 Output Total Balance 300 455 465 Intake, IV 75 225 Intake, Oral 300 380 240 Physical Exam General Appearance: Alert, Oriented X3, Cooperative, Moderate Distress, moderate resp distress Cardiovascular: tachycardia Lungs: diffuse rhonchi, crackles, Abdomen: Normal Bowel Sounds, Soft, No Tenderness Vascular: 2+ radial pulses Assessment/Plan Assessment: 87 year old female with past medical history of chronic renal insufficiency ( Stage IIIB), hypothyroidism and hypertension presents with complaints worsening cough, dyspnea, and syncopal episode this morning. #Syncope/?Cough induced vasovagal syncope: trop .03x3 Carotid doppler : b/l plaques but normal velocities Echo: 60-65% -Borderline orthostatic hypotension (138/66 standing to 110/60 lying) -place compression stockings -Follow-up outpatient cardiology for event monitor #SOB/fluid overload HCTZ initially held for ckd stage 3 and syncope -IV lasix x1 given, pt improved after -restart hctz #Bronchitis Received steroids and nebulizer treatment in the ED Chest x-ray negative Possibly cough induced vasovagal syncope -tessalon pearsl -mucinex -Robitussin without codeine (per pt requests) -prednisone 20 x3 days #afib run -apixaban 2.5 mg BID -Transition from cardizem 30 TID to cardizem 120mg CD -f/u cardiology recomendations as stated above #Urinary frequency: Spontaneously resolved -Negative urinalysis and urine culture #HTN: -Continue losartan -restasrt hctz #Hypothyroidism: TSH wnl -cont levothyroxine #CKD Cr 1.5 -baseline, cont to monitor Heart healthy diet DVT ppx-pt now on apixaban DNR/DNI Problem List: 1. Bronchitis 2. Syncope 3. Afib Pain Ratin Pain Location: none Pain Goal: Pain 4 or less Pain Plan: pain pathway Tomorrow's Labs & Rationales: none Shlomo Figueroa MD 12/04/17 1110: Attending MD Review Statement Attending Statement Attending MD Statement: examined this patient, discuss w/resident/PA/, agreed w/resident/PA/, reviewed EMR data (avail) Attending Assessment/Plan: 87F PMH HTN, CKD/IIIB, hypothyroidism presenting with several days of dry cough and mild dyspnea, with two near syncopal episodes in the days preceding admission. Went to her PCP 4 days prior with complaints of cough, was given Symbicort, which made her cough more so she stopped it, then had two episodes in consecutive days where she broke out into a cold sweat, felt lightheaded, and nearly fell to the ground. She did not lose consciousness in either episode, and they were not preceded by coughing fits, chest pain, SOB, or any other symptoms. EKG was NSR in ED, negative troponin, negative CXR. Crackles on lung exam today with some more dyspnea and thick sputum production. Otherwise well, no further episodes of lightheadedness. 1. Near syncope 2. Acute bronchitis 3. New onset atrial fibrillation Plan - Continue on telemetry - Continue PO Cardizem and Eliquis - Prednisone 20mg - Robitussin with codeine only before bed, then Tessalon Perles and Mucinex for cough - Continue home medications - Will give dose of IV Lasix today and monitor urine output - DVT PPx
[2017-12-04] MEDS ORDERED: DILTIAZEM ER120 M2 PO ×2 (08:25→13:47)
--- NOTE | 2017-12-04 10:25 | PN- Cardiology ---
Subjective Subjective: Reports a productive cough. No chest pain or palpitations. Denies dizziness. Objective Vital Signs and I&Os Vital Signs Date Time Temp Pulse Resp B/P B/P Pulse O2 O2 Flow FiO2 Mean Ox Delivery Rate 12/04 0650 98.0 89 20 146/84 93 Room Air 12/03 1431 98.2 82 20 112/62 92 Room Air 12/03 1344 74 130/74 Intake & Output 12/04 1600 12/04 0800 12/04 0000 12/03 1600 12/03 0812/03 0000 Intake Total 455 465 780 120 360 Output Total Balance 455 465 780 120 360 Intake, IV 75 225 300 Intake, Oral 380 240 480 120 360 Patient 166 lb Weight Physical Exam: General: no apparent distress. Alert. Eyes: No obvious scleral icterus. HEENT: No jugular venous distention or abnormal jugular venous pulsations. Cardiovascular: Normal intensity S1/S2. 1 out of 6 systolic murmur Respiratory: Mild rhonchi Abdomen: Soft, nontender with no guarding or rebound tenderness. Musculoskeletal: No clubbing or cyanosis noted Skin: Warm Neurologic: No gross focal deficits noted. Current Medications: Current Medications Sig/Marie Start time Last Medication Dose Route Stop Time Status Admin Albuterol Sulfate 3 ML BID 12/04 1000 AC 12/04 INH 0958 Albuterol Sulfate 2 PUF Q4 12/02 1000 AC 12/04 INH 0906 Apixaban 2.5 MG BID 12/02 2200 AC 12/04 PO 0902 Benzonatate 100 MG TID 12/02 1000 AC 12/04 PO 0902 Diltiazem HCl 120 MG DAILY 12/04 1000 AC 12/04 PO 0902 Diltiazem HCl 30 MG Q8 12/02 1400 DC 12/03 PO 1344 Furosemide 40 MG ONCE ONE 12/04 1015 DC 12/04 IV 12/04 1016 1018 Guaifenesin 600 MG Q12 12/02 1000 AC 12/04 PO 0902 Guaifenesin/Codeine 10 ML AT BEDTIME PRN 12/03 1046 DC Phosphate PO Guaifenesin/Codeine 10 ML Q4P PRN 12/02 2300 DC 12/02 Phosphate PO 2310 Guaifenesin/ 10 ML AT BEDTIME NEED.. 12/03 1100 AC 12/04 Dextromethorphan PO 0903 Levothyroxine Sodium 0.088 MG DAILY AC 12/02 0700 AC 12/04 PO 0633 Losartan Potassium 100 MG AT BEDTIME 12/01 0030 AC 12/03 PO 2113 Prednisone 20 MG DAILY 12/02 1000 DC 12/04 PO 12/04 1001 0902 Sodium Chloride 1,000 ML Q13H 12/03 1100 DC 12/03 IV 12/03 2359 1059 Results Last 48 Hrs of Labs/Mics: Laboratory Tests 12/03/17 1435: Urine Color YEL, Urine Clarity CLEAR, Urine pH 6.0, Ur Specific [place] 1.015, Urine Protein NEG, Urine Ketones NEG, Urine Nitrite NEG, Urine Bilirubin NEG, Urine Urobilinogen 0.2, Ur Leukocyte Esterase NEG, Ur Microscopic EXAM NOT REQUIRED, Urine Hemoglobin NEG, Urine Glucose NEG 12/03/17 0643: Anion Gap 12, Estimated GFR 33 L, BUN/Creatinine Ratio 24.0, Calcium 9.1, Magnesium 2.1 Recent Imaging Studies: Telemetry tracings are personally reviewed and shows sinus rhythm with PVCs next Carotid ultrasound showed no obvious evidence of High Level obstruction next Echo: Poor Echo window. Normal left ventricular systolic function with mild concentric hypertrophy. Mild Left atrial enlargement. Mild Aortic stenosis. Assessment/Plan Assessment/Plan 1. Syncope. Recent cough and differential diagnoses have included vasovagal syncope, orthostatic hypotension or significant bradycardia. During her episode this morning there was no cardiac arrhythmia bradycardia or tachycardia documented. 2. Paroxysmal atrial fibrillation. Patient on diltiazem and anticoagulation with Eliquis 3. History of hypothyroidism 4. Hypertension 5. Chronic renal insufficiency Still with a productive cough but she is afebrile without leukocytosis. Remains in sinus rhythm. Hemoglobin within normal limits on Eliquis. She appears euvolemic on exam. Would document orthostatic vital signs. She will likely be a candidate for additional outpatient event monitor. Echocardiogram as above without major structural pathology and carotid ultrasound showed no evidence of high-grade obstruction. No sustained arrhythmias detected on telemetry. Biju Paulino MD [facility] Continue telemetry? No
[2017-12-04] MEDS ORDERED: ELIQUIS2.5 M1 PO (13:47)
[2017-12-04 14:36] VITALS: BP 130/64
[2017-12-04 15:59] VITALS: BP 110/60
[2017-12-04 22:42] VITALS: BP 128/70
[2017-12-05 07:40] VITALS: BP 138/78
--- NOTE | 2017-12-05 13:57 | PN- Att Addend ---
Attending Addendum Attending Brief Note Patient seen and examined. Plan of care discussed with the medical team and the patient. Available lab work and radiology test reports were reviewed. Patient feels well today and denies any dizziness sweating and nausea vomiting or chest pains. She denies any difficulty breathing. Her vital signs are stable she's afebrile and saturation 94% on room air. Exam: General: Patient awake alert oriented without any distress CVS: S1 plus S2 without any murmur or gallops Chest: Few scattered crepitation without any wheeze. There is no respiratory distress. Abdomen: Soft non-tender, bowel sound present, no guarding or rebound CHEMIST FOOD: Awake alert oriented without any focal neuro deficit and follows commands appropriately Extremities: No edema; no clubbing or cyanosis noted Assessment * Syncope likely vasovagal-orthostatics were negative echo shows 60% ejection fraction * Suspected acute bronchitis-improved * History of paroxysmal atrial fibrillation * Hypothyroidism * Chronic renal failure Plan Ambulate with assist Await reassessment by cardiology If clear by cardiology patient can be discharged home today Continue eliquis Current Medications Sig/Marie Start time Last Medication Dose Route Stop Time Status Admin Albuterol Sulfate 3 ML BID 12/04 1000 AC 12/05 INH 1009 Albuterol Sulfate 2 PUF Q4 12/02 1000 AC 12/04 INH 1817 Apixaban 2.5 MG BID 12/02 2200 AC 12/05 PO 0851 Benzonatate 100 MG TID 12/02 1000 AC 12/04 PO 2127 Diltiazem HCl 120 MG DAILY 12/04 1000 AC 12/05 PO 0851 Guaifenesin 10 ML .STK-MED ONE 12/04 2122 DC PO 12/04 212 Guaifenesin 10 ML .STK-MED ONE 12/04 1544 DC PO 12/04 1545 Guaifenesin 600 MG Q12 12/02 1000 AC 12/05 PO 0851 Guaifenesin/ 10 ML .STK-MED ONE 12/04 2125 DC Dextromethorphan PO 12/04 212 Guaifenesin/ 10 ML AT BEDTIME NEED.. 12/03 1100 AC 12/05 Dextromethorphan PO 0857 Hydrochlorothiazide 12.5 MG DAILY 12/05 1000 AC 12/05 PO 0900 Levothyroxine Sodium 0.088 MG DAILY AC 12/02 0700 AC 12/05 PO 0600 Losartan Potassium 100 MG AT BEDTIME 12/01 0030 AC 12/04 PO 2131 Laboratory Tests 12/03/17 1435: Urine Color YEL, Urine Clarity CLEAR, Urine pH 6.0, Ur Specific [place] 1.015, Urine Protein NEG, Urine Ketones NEG, Urine Nitrite NEG, Urine Bilirubin NEG, Urine Urobilinogen 0.2, Ur Leukocyte Esterase NEG, Ur Microscopic EXAM NOT REQUIRED, Urine Hemoglobin NEG, Urine Glucose NEG 12/03/17 0643: Anion Gap 12, Estimated GFR 33 L, BUN/Creatinine Ratio 24.0, Calcium 9.1, Magnesium 2.1 Microbiology 12/04 1023 LOWER RESP: Respiratory Culture - RES 12/04 1023 LOWER RESP: Gram Stain - RES 12/04 0858 LOWER RESP: Respiratory Culture - COLB 12/04 0858 LOWER RESP: Gram Stain - COLB 12/03 143 URINE ROUT: Urine Culture - COMP Vital Signs Date Time Temp Pulse Resp B/P B/P Pulse O2 O2 Flow FiO2 Mean Ox Delivery Rate 12/05 1010 94 Room Air 12/05 0800 92 Room Air 12/05 0740 99.8 89 18 138/78 92 Room Air 12/05 0027 97 92 12/05 0000 Room Air 12/04 2242 98.8 87 20 128/70 93 12/04 2131 94 120/60 / 2057 94 Room Air Room Air 12/04 1600 94 Room Air Room Air 12/04 1559 81 110/60 / 1436 98.6 98 20 130/64 96 Room Air Intake & Output 12/05 1600 12/05 0800 04 0000 Intake Total 200 360 Output Total Balance 200 360 Intake, Oral 200 360 Patient 165 lb 167 lb Weight
--- NOTE | 2017-12-05 15:13 | PN- Cardiology ---
Subjective Subjective: The patient continues to complain of a productive cough. No chest pain. No lightheadedness or dizziness. No shortness of breath. Objective Vital Signs and I&Os Vital Signs Date Time Temp Pulse Resp B/P B/P Pulse O2 O2 Flow FiO2 Mean Ox Delivery Rate 12/05 1010 94 Room Air 12/05 0800 92 Room Air 12/05 0740 99.8 89 18 138/78 92 Room Air 12/05 0027 97 92 12/05 0000 Room Air 12/04 2242 98.8 87 20 128/70 93 12/04 2131 94 120/60 12/04 2057 94 Room Air Room Air 12/04 1600 94 Room Air Room Air 12/04 1559 81 110/60 Intake & Output 12/05 0800 12/05 0000 12/04 1600 12/04 0800 12/04 0000 Intake Total 520 200 360 300 455 465 Output Total Balance 520 200 360 300 455 465 Intake, IV 75 225 Intake, Oral 520 200 360 300 380 240 Patient 165 lb 167 lb Weight Physical Exam: General: no apparent distress. Alert. Eyes: No obvious scleral icterus. HEENT: No jugular venous distention or abnormal jugular venous pulsations. Cardiovascular: Normal intensity S1/S2. 1 out of 6 systolic murmur Respiratory: Mild rhonchi Abdomen: Soft, nontender with no guarding or rebound tenderness. Musculoskeletal: No clubbing or cyanosis noted Skin: Warm Neurologic: No gross focal deficits noted. Current Medications: Current Medications Sig/Marie Start time Last Medication Dose Route Stop Time Status Admin Albuterol Sulfate 3 ML BID 12/04 1000 AC 12/05 INH 1009 Albuterol Sulfate 2 PUF Q4 12/02 1000 AC 12/04 INH 1817 Apixaban 2.5 MG BID 12/02 2200 AC 12/05 PO 0851 Benzonatate 100 MG TID 12/02 1000 AC 12/04 PO 2127 Diltiazem HCl 120 MG DAILY 12/04 1000 AC 12/05 PO 0851 Guaifenesin 10 ML .STK-MED ONE 12/04 2121 DC PO 12/04 212 Guaifenesin 10 ML .STK-MED ONE 12/04 1544 DC PO 12/04 1545 Guaifenesin 600 MG Q12 12/02 1000 AC 12/05 PO 0851 Guaifenesin/ 10 ML .STK-MED ONE 12/04 2125 DC Dextromethorphan PO 12/04 2126 Guaifenesin/ 10 ML AT BEDTIME NEED.. 12/03 1100 AC 12/05 Dextromethorphan PO 08 Hydrochlorothiazide 12.5 MG DAILY 12/05 1000 AC 12/05 PO 0900 Levothyroxine Sodium 0.088 MG DAILY AC 12/02 0700 AC 12/05 PO 0600 Losartan Potassium 100 MG AT BEDTIME 12/01 0030 AC 12/04 PO 2131 Assessment/Plan Assessment/Plan 1. Syncope, Likely vasovagal 2. Paroxysmal atrial fibrillation. Patient on diltiazem and anticoagulation with Eliquis 3. History of hypothyroidism 4. Hypertension 5. Chronic renal insufficiency Plan: * Clear for discharge from cardiac standpoint * Continue current cardiac medications * Follow up with Dr. Monge within 1 week Continue telemetry? No
--- NOTE | 2017-12-07 14:17 | Discharge Summary ---
Visit Information Visit Dates Admission Date: 12/01/17 Discharge Date: 12/05/17 Hospital Course Course Attending Physician: Shlomo Figueroa MD Primary Care Physician: Liam Alvarado MD Hospital Course: A: 87 year old F with past medical history of chronic renal insufficiency, hypothyroidism and hypertension presents with complaints worsening cough, dyspnea, and syncopal episode. #Syncope/?Cough induced vasovagal syncope: The patient was admitted for syncope workup. Troponins and EKG were negative for any acute coronary syndrome. Carotid Dopplers bilateral plaques but with normal velocities. Echocardiogram revealed normal left ventricular systolic function with mild concentric hypertrophy. She was found to have borderline orthostatic hypotension (138/66 standing to 110/60 lying). Her bronchitis may have induced her coughing which led to possible vasovagal syncope as the patient was coughing severely before her syncopal episode. She was advised to follow-up with cardiology outpatient for an event monitor #SOB/fluid overload The patient takes hydrochlorothiazide at home. Hydrochlorothiazide was initially held due to her CKD. She became fluid overloaded and had shortness of breath. She was given IV Lasix X1 which improved her symptoms. Her hydrochlorothiazide was restarted. #Bronchitis The patient received IV steroid and nebulizer treatments in the ED. Chest x-ray revealed no acute cardiopulmonary findings. She was treated with Tessalon Perles, Mucinex, Robitussin, and prednisone 20 mg X3 days which improved her symptoms. #Paroxysmal atrial fibrillation The patient was found to have new onset A. fib. She was started on apixaban and po Cardizem TID. She was discharged with Apixaban 2.5 mg BID and long acting Cardizem 120 mg CD. Advised to follow-up with cardiology as noted above. #Urinary frequency: The patient presented with increased urinary frequency which spontaneously resolved. Her urinalysis and urine cultures were negative. #HTN: Continued losartan and hydrochlorothiazide #Hypothyroidism: Continued levothyroxine. TSH was within normal limits. #CKD Creatinine remained stable around her baseline of 1.5. Allergies: Coded Allergies: shrimp (Severe, ANAPHYLAXIS 12/01/17) Disposition Summary Disposition Principal Diagnosis: Syncope Additional Diagnosis: Fluid overload Bronchitis Paroxysmal afib Discharge Disposition: home or self care Discharge Instructions General Discharge Information Code Status: Do Not Resucitate/Intubat Patient's Diet: Heart healthy Patient's Activity: As tolerated Follow-Up Instructions/Appts: Please follow-up with your primary care physician in one week. Please follow-up with your line cook in one week. Please take your medications as prescribed. Medications at Discharge Discharge Medications: Continue taking these medications: Levothyroxine Sodium (Synthroid) 88 MCG TABLET 1 Tablet ORAL DAILY BEFORE BREAKFAST Qty = 30 Comments: Last Taken: 12/05/17 Time: 6:00 AM Hydrochlorothiazide (Hydrochlorothiazide) 12.5 MG TABLET 1 Tablet ORAL DAILY Qty = 30 Comments: Last Taken: 12/05/17 Time: 9:00 AM Losartan (Cozaar) 100 MG TABLET 1 Tablet ORAL DAILY Qty = 30 Comments: Last Taken: 12/04/17 Time: 9:30 PM Start taking the following new medications: Diltiazem Cd (Diltiazem ER) 120 MG CAP.ER.DEG 1 Tablet ORAL DAILY Qty = 30 No Refills Instructions: . Comments: Last Taken: 12/05/17 Time: 8:50 AM Apixaban (Eliquis) 2.5 MG TABLET 1 Tablet ORAL TWICE DAILY Qty = 60 No Refills Instructions: . Comments: Last Taken: 12/05/17 Time: 8:50 AM Copies To: Jenny GLASGOW,Liam Ferreira
== END 2017-12-05 17:30 | DRG 312 ==
LOC: ERH 13:25 → 1NO 17:51 → ERHI 17:51 → ENRESERV 20:21 → ENTRNSPT 21:08 → EDTRNSPTSTS 21:18 → 1NO 21:26 → CMPTRNSPT 21:36 → 1NO 12-04 11:37
PROVIDERS: Physician Assistant
PROC: 5A09357 Assistance with Respiratory Ventilation, Less than 24 Consecutive Hours, Continuous Positive Airway Pressure (ICD-10-PCS; principal; 2017-12-04)
DX: R55 Syncope and collapse (principal); E83.52 Hypercalcemia; N18.3 Chronic kidney disease, stage 3 (moderate); I48.0 Paroxysmal atrial fibrillation; J20.9 Acute bronchitis, unspecified; E03.9 Hypothyroidism, unspecified; Z87.891 Personal history of nicotine dependence; Z66 Do not resuscitate; R05 Cough; R35.0 Frequency of micturition; I12.9 Hypertensive chronic kidney disease with stage 1 through stage 4 chronic kidney disease, or unspecified chronic kidney disease; I49.1 Atrial premature depolarization; I49.3 Ventricular premature depolarization; K21.9 Gastro-esophageal reflux disease without esophagitis; M19.90 Unspecified osteoarthritis, unspecified site; Z91.013 Allergy to seafood
CPT/HCPCS: 1NSP; 36415; 36592; 71046; 81003; 82436; 87070; 87086; 87804; 87804-59; 93005; 93010; 93306; J1644; J1650; J1940; J2930; J3490